=== PATIENT | male | born 2000 | race Asian ===

== ENCOUNTER 2022-12-21 12:26 | Outpatient (CLI) | payer OTHER, SELFPAY | END 2022-12-21 12:27 | disposition home or self-care (01) | LOC: NFLDREF 12-22 12:09 | PROVIDERS: Visit Provider Registered Nurse | DX: R30.0 Dysuria (principal); N39.0 Urinary tract infection, site not specified; N30.01 Acute cystitis with hematuria | CPT/HCPCS: 87086; 87186 ==